=== PATIENT | female | born 1980 | race Caucasian/White ===

== ENCOUNTER 2021-12-01 20:38 | Emergency (ER) | payer MEDICAID ==
--- NOTE | 2021-12-01 20:53 | NUR ---
Patient name called from ER waiting room to triage but not seen in waiting room at this time. Patient left without being seen.
--- NOTE | 2021-12-01 21:15 | NUR ---
Patient name called from ER waiting room to triage but not seen in waiting room at this time. Patient left without being seen.
--- NOTE | 2021-12-01 21:30 | NUR ---
Patient name called from ER waiting room to triage but not seen in waiting room at this time. Patient left without being seen.
--- NOTE | 2021-12-01 22:00 | NUR ---
Patient name called from ER waiting room to triage but not seen in waiting room at this time. Patient left without being seen.
== END 2021-12-01 20:43 | disposition left against medical advice (07) ==
LOC: SED 20:38
DX: O20.9 Hemorrhage in early pregnancy, unspecified (principal); Z53.21 Procedure and treatment not carried out due to patient leaving prior to being seen by health care provider